=== PATIENT | male | born 1950 | race Two or more races ===

== ENCOUNTER 2024-05-20 21:36 | Emergency (ER) | payer OTHER, MEDICAID, SELFPAY ==
[2024-05-20 21:38] VITALS: BMI 24.9
[2024-05-20 22:03] VITALS: BP 146/88; PULSE 68; RESP 18; TEMP 36.9; O2SAT 98
--- NOTE | 2024-05-20 22:19 | EDNOTE_ITS ---
ED Wound/Laceration-RME/HPI General Chief Complaint: Wound/Laceration Stated Complaint: LAC TO TOP OF FOOT Time Seen by Provider: 05/20/24 21:48 Arrival date/time: 05/20/24 21:36 This is a 73-year-old male that comes in with complaints of laceration to dorsal left foot. Patient was trying to get into the shower and was lifting up a towel and glass piece fell on him causing a laceration.. Patient reports history of back surgery Related Data Home Medications ?Medication ?Instructions ?Recorded ?Confirmed metformin 1,000 mg tablet 1,000 mg PO BID 09/24/1810/06 Previous Rx's ?Medication ?Instructions ?Recorded docusate sodium 100 mg capsule 100 mg PO TID PRN const ipation #20 11/29/22 (Colace) caps hydrocodone 5 mg-acetaminophen 325 1 tab PO Q8H PRN pa in #20 tabs 11/29/22 mg tablet cephalexin 500 mg capsule 500 mg PO BID 7 days #14 cap s 05/30/24 Allergies Allergy/AdvReac Type Severity Reaction Status Date / Time No Known Allergies Allergy Verified 05/30/24 12:51 Review of Systems Review of Systems Systems Reviewed: All systems reviewed, normal except as documented Past Medical History Past Medical History CARDIAC: Negative Cardiac Disorders or Congestive Heart Failure RESPIRATORY: Negative Chronic Obstructive Pulmonary Disease (COPD) or Asthma GENITOURINARY: Negative Renal Disease ENDOCRINE: Positive Diabetes Mellitus Type 2; Negative Diabetes Mellitus Type 1 HEMATOLOGIC: Negative Sickle Cell Disease Family History FAMILY HISTORY: Negative Family Respiratory Disorders, Family Cardiac Disorders or Family Gastrointestinal Problems Social History SMOKING STATUS: Never smoker SUBSTANCE USE: does not use ED Exam General General appearance: Present alert and in no apparent distress Head Head exam: Present atraumatic Eye Eye exam: Present normal appearance, PERRL and EOMI ENT ENT exam: Present normal exam, normal oropharynx and mucous membranes moist Neck Neck exam: Present normal inspection, full ROM and trachea midline Chest Chest inspection: Present normal inspection and symmetric chest wall rise Respiratory Respiratory exam: Present normal lung sounds bilaterally Cardiovascular Cardiovascular exam: Present regular rate Abdominal Exam Abdominal exam: Present soft Extremities Exam Extremities exam: Present full ROM and other (approx 2cm laceration to dorsal left foot) Back Exam Back exam: Present normal inspection and full ROM Neurological Exam Neurological exam: Present alert and oriented X3 Psychiatric Psychiatric exam: Present normal affect and normal mood Skin Skin exam: Present warm, dry, intact and normal color Course Quality Measures none Orders Category Date Time Status XR foot comp LT min 3V Stat Exams 05/20/24 22:20 Completed Acetaminophen Tab [Tylenol ES Tab] Med 05/20/24 22:21 Discontinued 1,000 mg PO X1 ONE Lidocaine 1% 20 ml [Xylocaine 1% 20 ML] Med 05/21/24 00:13 Discontinued 10 ml INFL X1 ONE Lidocaine 1% W/Epi 1:100K 20Ml [Xylocaine 1% w/Epi 1: Med 05/20/24 23:02 Di scontinued 100K 20 ml] 20 ml INFL X1 ONE Lidocaine 1% W/Epi 1:100K 50Ml [Xylocaine Inj 1% w/Epi Med 05/20/24 22:21 Discontinued 1:100K 50 ml] 50 ml INFL X1 ONE Tet,Diphth,Pertuss(Acell)-Tdap [Boostrix Vacc] Med 05/20/24 22:22 Discontinued 0.5 ml IMI .ONCE ONE Vital Signs Vital signs: Vital Signs Temperature 98.5 F 05/20/24 22:03 Pulse Rate 68 05/20/24 22:03 Respiratory Rate 18 05/20/24 22:03 Blood Pressure 146/88 H 05/20/24 22:03 Pulse Oximetry (%) 98 05/20/24 22:03 Oxygen Delivery Method Room Air 05/20/24 22:03 Procedures -ED Laceration Laceration 1: Site: other (left foot ) Side (If applicable): left Size (cm): 2 Description: irregular Depth: simple, single layer Local Anesthetic: lidocaine 1% Amount of anesthesia used (mL): 4 Pre-repair: wound explored and irrigated extensively Skin layer closed with: nylon Size (cm): 3-0 Number of sutures: 7 Technique: simple, interrupted Wound / Laceration MDM Narrative MDM Narrative:: Left foot x ray: Findings: Moderate osteopenia No fracture No opaque foreign body Impression: No opaque foreign body I initially wanted lido with epi because of but was bleeding but I did not have to use lido with epi for wound infiltration. I was able to use 1% lidocaine I used approximately 5 mL 7 sutures placed 3-0 nylon. Patient tolerated procedure well. Patient told to have sutures removed in 7 to 10 days. Patient told to come back to the emergency room if symptoms change or worsen. Patient data External records reviewed:: [facility] previous records Clinical information provided by:: patient Social determinants that could affect healthcare access:: none Patient has the following chronic illnesses:: none How is presenting disease/condition affected by chronic disease/condition?: no chronic disease Evaluation data The following diagnostics were reviewed and interpreted by me:: radiology exam(s) Lab and/or radiology exams considered but not ordered:: none Interpretation Summary: see note Medications / Prescriptions Medications or Prescriptions considered but not ordered:: none Medication administrations:: Medication Administration History Discontinued Medications Acetaminophen (Acetaminophen 500 Mg Tablet) 1,000 mg PO X1 ONE Stop: 05/20/24 22:22 Last Admin: 05/20/24 23:07 Dose: 1,000 mg Documented By: CLAUS Diphtheria/Tetanus/Acell Pertussis (Diphth,Pertuss(Acell),Tet Vac 0.5 Ml Syr- Adult) 0.5 ml IMi .ONCE ONE Stop: 05/20/24 22:23 Last Admin: 05/20/24 23:08 Dose: 0.5 ml Documented By: CLAUS Lidocaine HCl (Lidocaine Hcl 1% 20 Ml Vial) 10 ml INFL X1 ONE Stop: 05/21/24 00:14 Last Admin: 05/21/24 00:17 Dose: 10 ml Documented By: CLAUS Comments: used by Lidocaine/Epinephrine (Lidocaine 1% W/Epi 1:100k 50 Ml Vial) 50 ml INFL X1 ONE Stop: 05/20/24 22:22 Last Admin: 05/21/24 00:17 Dose: Not Given Documented By: CLAUS Non-Admin Reason: Cancelled by Provider Lidocaine/Epinephrine (Lidocaine 1% W/Epi 1:100k 20 Ml Vial) 20 ml INFL X1 ONE Stop: 05/20/24 23:03 Last Admin: 05/21/24 00:17 Dose: Not Given Documented By: EF Non-Admin Reason: Cancelled by Provider see mar Consultations Consultation(s) initiated? (list below): No Diagnosis Wound Differential Diagnosis: laceration Most likely diagnosis given after review of the tests above:: laceration Admission Indicated Admission indicated?: not indicated Admission Request Was there a request for admission?: No Disposition Plan Disposition Plan: Discharge Discharge Attestation Discharge Attestation: The patient and all family members were given an opportunity to ask questions and understood the discharge instructions. Discharge instructions specifically effects, indications for sooner follow up or return to the emergency department, and the expected course of current diagnosis. Patient condition: Stable Discharge Plan Plan Patient Disposition: HOME (Self Care) Patient condition on transfer: Stable Prescriptions/Referrals Prescriptions/Med Rec: No Action metformin 1,000 mg Tablet 1,000 mg PO BID hydrocodone-acetaminophen 5-325 mg tablet 1 tab PO Q8H MDD 3 tabs/day PRN (Reason: pain) Qty: 20 0RF docusate sodium [Colace] 100 mg capsule 100 mg PO TID PRN (Reason: constipation) Qty: 20 0RF cephalexin 500 mg capsule 500 mg PO BID 7 Days Qty: 14 0RF Referrals: No Primary/Family,Physician [Primary Care Provider] - In 1 week Problem List Clinical Impression: Laceration Patient/Caregiver Discharge Instructions Discharge Activity: activity as tolerated Education Materials: Suture Care, ED Wound Care Additional Instructions: Patient told that sutures can come out in 7 to 10 days. Follow up with primary provider in 1-2 days. Come back to ED if symptoms change or worsen. Patient told to keep wound clean and dry. Print Language: Nigerien Stand Alone Forms: Katarzyna Award Info., Patient Portal Info Letter PA/SCRAP HOIST OPERATOR Supervising Physician PA/SCRAP HOIST OPERATOR Supervising Physician: malcom
--- NOTE | 2024-05-20 22:20 | XR_ITS ---
Examination: Foot, left, 3 views Technique: AP, oblique, lateral views foot, 3 views Date and time of exam: May 20, 2024 10:20 PM Indications: Laceration to the foot today, foot pain Findings: Moderate osteopenia No fracture No opaque foreign body Impression: No opaque foreign body
[2024-05-20] MEDS: ACETAMINOPHEN 500 MG TABLET 1000 MG PO (23:07)
[2024-05-20] MEDS: DIPHTH,PERTUSS(ACELL),TET VAC 0.5 ML SYR- ADULT IMi (23:08)
[2024-05-21] MEDS: LIDOCAINE HCL 1% 20 ML VIAL 10 ML INFL (00:17)
== END 2024-05-21 00:57 | disposition home or self-care (01) ==
PROVIDERS: Emergency Provider Emergency Medicine
DX: S91.312A Laceration without foreign body, left foot, initial encounter (principal); W25.XXXA Contact with sharp glass, initial encounter; Z23 Encounter for immunization
CPT/HCPCS: 12001; 73630; 90471; 90715; 99283; J3490; A9270

== ENCOUNTER 2024-05-30 12:46 | Emergency (ER) | payer OTHER, MEDICAID, SELFPAY ==
[2024-05-30 13:16] VITALS: BP 144/80; PULSE 71; RESP 20; TEMP 36.8; O2SAT 97
--- NOTE | 2024-05-30 13:36 | PD.EDADULT ---
ED General RME/HPI General Chief complaint: General Adult/Misc Complain Stated complaint: LAC IN L) FOOT 3/3, GOT STITCHES HERE, RED Time Seen by Provider: 05/30/24 12:54 Source: patient Arrival date/time: 05/30/24 12:46 73-year-old male with no known medical history presents to the emergency room with a chief complaint of needing to get his sutures removed from his left foot. Mode of arrival: ambulatory Limitations: no limitations Related Data Home Medications ?Medication ?Instructions ?Recorded ?Confirmed metformin 1,000 mg tablet 1,000 mg PO BID 09/24/18 09/24/18 Previous Rx's ?Medication ?Instructions ?Recorded docusate sodium 100 mg capsule 100 mg PO TID PRN constipation #20 11/29/22 (Colace) caps hydrocodone 5 mg-acetaminophen 325 1 tab PO Q8H PRN pain #20 tabs 11/29/22 mg tablet cephalexin 500 mg capsule 500 mg PO BID 7 days #14 caps 05/30/24 Allergies Allergy/AdvReac Type Severity Reaction Status Date / Time No Known Allergies Allergy Verified 05/30/24 12:51 Review of Systems Review of Systems Systems Reviewed: All systems reviewed, normal except as documented Constitutional Constitutional: Reports system reviewed and no additional complaints, except as documented, Denies fatigue, Denies fever(s), Denies headache(s) and Denies weakness Eyes Eyes: Reports system reviewed and no additional complaints, except as documented, Denies blurry vision and Denies change in vision ENT Ears, Nose, Mouth, and Throat: Reports system reviewed and no additional complaints, except as documented, Denies otalgia, Denies headache(s), Denies nasal congestion, Denies throat swelling and Denies vertigo Cardiovascular Cardiovascular: Reports system reviewed and no additional complaints, except as documented, Denies chest pain, Denies dyspnea and Denies dyspnea on exertion Respiratory Respiratory: Reports system reviewed and no additional complaints, except as documented, Denies chest congestion, Denies cough, Denies dyspnea, Denies dyspnea on exertion and Denies wheezing Gastrointestinal Gastrointestinal: Reports system reviewed and no additional complaints, except as documented, Denies abdominal pain, Denies cramping, Denies nausea and Denies vomiting Genitourinary Genitourinary: Reports system reviewed and no additional complaints, except as documented, Denies dysuria and Denies hematuria Musculoskeletal Musculoskeletal: Reports system reviewed and no additional complaints, except as documented and Denies back pain Integumentary/Breasts Skin/Breast: Reports system reviewed and no additional complaints, except as documented and Reports wounds Neurologic Neurologic: Reports system reviewed and no additional complaints, except as documented, Denies confusion, Denies headache(s), Denies lack of coordination, Denies vertigo and Denies weakness Psychiatric Psychiatric: Reports system reviewed and no additional complaints, except as documented, Denies anxiety, Denies confusion, Denies depression, Denies paranoia, Denies suicidal ideation and Denies tactile hallucinations Endocrine Endocrine: Reports system reviewed and no additional complaints, except as documented and Denies fatigue Hematologic/Lymphatic Hematologic/Lymphatic: Reports system reviewed and no additional complaints, except as documented and Denies lymphadenopathy Allergic/Immunologic Allergic/Immunologic: Reports system reviewed and no additional complaints, except as documented, Denies throat swelling, Denies urticaria and Denies wheezing Past Medical History Past Medical History CARDIAC: Negative Cardiac Disorders or Congestive Heart Failure RESPIRATORY: Negative Chronic Obstructive Pulmonary Disease (COPD) or Asthma GENITOURINARY: Negative Renal Disease ENDOCRINE: Positive Diabetes Mellitus Type 2; Negative Diabetes Mellitus Type 1 HEMATOLOGIC: Negative Sickle Cell Disease Family History FAMILY HISTORY: Negative Family Respiratory Disorders, Family Cardiac Disorders or Family Gastrointestinal Problems Social History SMOKING STATUS: Never smoker SUBSTANCE USE: does not use ED Exam General Limitations: Present no limitations General appearance: Present alert and in no apparent distress Head Head exam: Present atraumatic Eye Eye exam: Present normal appearance, PERRL and EOMI ENT ENT exam: Present normal exam, normal oropharynx and mucous membranes moist Neck Neck exam: Present normal inspection, full ROM and trachea midline Chest Chest inspection: Present normal inspection and symmetric chest wall rise Respiratory Respiratory exam: Present normal lung sounds bilaterally Cardiovascular Cardiovascular exam: Present regular rate, normal rhythm and normal heart sounds Abdominal Exam Abdominal exam: Present soft and normal bowel sounds Extremities Exam Extremities exam: Present normal inspection and full ROM Back Exam Back exam: Present normal inspection and full ROM Neurological Exam Neurological exam: Present alert, oriented X3 and CN II-XII intact Psychiatric Psychiatric exam: Present normal affect and normal mood Skin Skin exam: Present warm, dry, intact and normal color Course Quality Measures none Vital Signs Vital signs: Vital Signs Temperature 98.2 F 05/30/24 13:16 Pulse Rate 71 05/30/24 13:16 Respiratory Rate 20 05/30/24 13:16 Blood Pressure 144/80 H 05/30/24 13:16 Pulse Oximetry (%) 97 05/30/24 13:16 Oxygen Delivery Method Room Air 05/30/24 13:16 O2 saturation 97% within normal limits [facility] Patient data External records reviewed:: [facility] previous records Clinical information provided by:: patient Social determinants that could affect healthcare access:: none Patient has the following chronic illnesses:: No chronic illness How is presenting disease/condition affected by chronic disease/condition?: no chronic disease Evaluation data The following diagnostics were reviewed and interpreted by me:: lab results and radiology exam(s) Lab and/or radiology exams considered but not ordered:: Labs and radiology exams considered and ordered Interpretation Summary: N/A Medications Medications considered but not ordered:: Rx given Medication administrations:: Rx given Consultations Consultation(s) initiated? (list below): No Diagnosis Differential Diagnosis ED Complaint MDM: Suture removal/suture removal infection Most likely diagnosis given after review of the tests above:: Suture removal Admission Indicated Admission indicated?: not indicated Explain why admission is indicated or not indicated:: N/A Admission Request Was there a request for admission?: No Disposition Plan Disposition Plan: Discharge Discharge Attestation Discharge Attestation: The patient and all family members were given an opportunity to ask questions and understood the discharge instructions. Discharge instructions specifically effects, indications for sooner follow up or return to the emergency department, and the expected course of current diagnosis. Patient condition: Stable Medical Decision Making [facility] Narrative MDM Narrative: 73-year-old male with no known medical history presents to the emergency room with a chief complaint of needing to get his sutures removed from his left foot. Patient is hemodynamically stable and in no apparent distress. Patient is afebrile not tachycardic Physical examination shows 6 sutures that were placed on 05/21/2024. I remove the sutures with no complications. The area is a little warm and erythemic. I sent over antibiotics to his pharmacy. Patient was discharged and educated to follow-up with primary care provider in the next 24 to 48 hours and return to the emergency room for any evidence of worsening signs or symptoms Differential Diagnosis Differential Diagnosis: Suture removal/suture removal infection Discharge Plan Plan Patient Disposition: HOME (Self Care) Disposition Comment: Stable Prescriptions/Referrals Prescriptions/Med Rec: New cephalexin 500 mg capsule 500 mg PO BID 7 Days Qty: 14 0RF No Action metformin 1,000 mg Tablet 1,000 mg PO BID hydrocodone-acetaminophen 5-325 mg tablet 1 tab PO Q8H MDD 3 tabs/day PRN (Reason: pain) Qty: 20 0RF docusate sodium [Colace] 100 mg capsule 100 mg PO TID PRN (Reason: constipation) Qty: 20 0RF Problem List Clinical Impression: Encounter for removal of sutures Patient/Caregiver Discharge Instructions Education Materials: ED Suture Removal, Infected Wound Additional Instructions: Por favor, consulte con martinez m?dico de cabecera en las pr?ximas 24 a 48 horas. Kylee suturas fueron retiradas sin complicaciones. Hay algo de calor y enrojecimiento alrededor de la herida. Le recet? antibi?ticos; por favor, rec?jalos y t?melos seg?n lo indicado. Si observa cualquier signo de empeoramiento de los signos o s?ntomas, acuda a urgencias de inmediato. Print Language: German Stand Alone Forms: Katarzyna Award Info., Patient Portal Info Letter PA/SENIOR SOFTWARE ENGINEERING MANAGER Supervising Physician PA/SENIOR SOFTWARE ENGINEERING MANAGER Supervising Physician: Dr. SKELTON
== END 2024-05-30 13:45 | disposition home or self-care (01) ==
LOC: SERX 13:55
PROVIDERS: Emergency Provider Emergency Medicine
DX: S91.312D Laceration without foreign body, left foot, subsequent encounter (principal); X58.XXXD Exposure to other specified factors, subsequent encounter
CPT/HCPCS: 99281